=== PATIENT | female | born 1995 | race Two or more races ===

== ENCOUNTER 2017-07-15 17:20 | Emergency (ER) | payer OTHER ==
[2017-07-15 17:25] VITALS: BP 140/76; PULSE 83; TEMP 98.1; BMI 24.9
--- NOTE | 2017-07-15 17:26 | PDOC ---
Rapid Medical Evaluation Chief Complaint: Ear Problem Time Seen by Provider: 07/15/17 17:24 Medical Evaluation: Allergies Allergy/AdvReac Type Severity Reaction Status Date / Time No Known Allergies Allergy Verified 07/15/17 17:22 07/15/17 17:24 Pt c/o: bilateral ear pain, no decrease hearing, no discharge Pt on brief exam: vss Pt ordered for : none Pt to proceed to the ED Discharge Disposition - Diagnosis Acute pain of both ears - Referrals - Patient Instructions - Post Discharge Activity
--- NOTE | 2017-07-15 19:09 | PDOC ---
History of Present Illness - General Chief Complaint: Ear Problem Stated Complaint: EAR PROBLEM/14 WKS Time Seen by Provider: 07/15/17 17:24 History Source: Patient Exam Limitations: No Limitations - History of Present Illness Initial Comments: 07/15/17 19:06 Patient is a 21-year-old female, currently 12 weeks denies any medical history presents with bilateral ear pain since yesterday. She reports receiving flu vaccine 1 week ago, the day after developed cold-like symptoms. Currently denies any fever. No nausea vomiting or diarrhea. Tolerating by mouth. Past Medical History: [Denies]. Allergies: No known allergies Medications: Family History: Non-contributory Social History: Denies smoking, alcohol use, or IVDU Review of Systems GENERAL/CONSTITUTIONAL: [No fever or chills. No weakness. No weight change.] HEAD, EYES, EARS, NOSE AND THROAT: [No change in vision. Bilateral ear pain. No sore throat. ] CARDIOVASCULAR: [No chest pain or shortness of breath.] RESPIRATORY: [No cough, wheezing, or hemoptysis.] GASTROINTESTINAL: [No nausea, vomiting, diarrhea or constipation. No rectal bleeding.] GENITOURINARY: [No dysuria, frequency, or change in urination.] MUSCULOSKELETAL: [No joint or muscle swelling or pain. No neck or back pain.] SKIN AND BREASTS: [No rash or easy bruising.] NEUROLOGIC: [No headache, vertigo, loss of consciousness, or loss of sensation.] PSYCHIATRIC: [No depression or anxiety.] ENDOCRINE: [No increased thirst. No abnormal weight change.] HEMATOLOGIC/LYMPHATIC: [No anemia, easy bleeding, or history of blood clots.] ALLERGIC/IMMUNOLOGIC: [No hives or skin allergy. No latex allergy.] Physical Exam: GENERAL: [The patient is awake, alert, and fully oriented, in no acute distress. ] EYES: [Pupils equal, round and reactive to light, extraocular movements intact, sclera anicteric, conjunctiva clear.] ENT: [Ears normal, nares patent, oropharynx clear without exudates. Moist mucous membranes. No uvula deviation] NECK: [Normal range of motion, supple without lymphadenopathy, JVD, or masses.] LUNGS: [Breath sounds equal, clear to auscultation bilaterally. No wheezes, and no crackles.] HEART: [Regular rate and rhythm, normal S1 and S2 without murmur, rub or gallop. ] ABDOMEN: [Soft, nontender, normoactive bowel sounds. No guarding, no rebound. No masses. No bruising or abrasions] MUSCULOSKELETAL: [Normal range of motion, no edema. No clubbing or cyanosis. No cords, erythema, or tenderness. No CVA Tenderness with fist.] NEUROLOGICAL: [Cranial nerves II through XII grossly intact. Normal speech, normal gait.] PSYCH: [Normal mood, normal affect.] SKIN: [Warm, Dry, normal turgor, no rashes or lesions noted.] Past History - Past Medical History Allergies/Adverse Reactions: Allergies Allergy/AdvReac Type Severity Reaction Status Date / Time No Known Allergies Allergy Verified 07/15/17 17:22 Home Medications: Ambulatory Orders NK [No Known Home Medication] 07/15/17 - Suicide/Smoking/Psychosocial Hx Smoking History: Never smoked *Physical Exam - Vital Signs Last Vital Signs Temp Pulse Resp BP Pulse Ox 98.1 F 83 18 140/76 98 07/15/17 17:23 07/15/17 17:23 07/15/17 17:23 07/15/17 17:23 07/15/17 17:23 Medical Decision Making - Medical Decision Making 07/15/17 19:09 A/P: Patient with bilateral ear pain, no evidence of infection patient does have runny nose, cold-like symptoms otherwise unremarkable. Will send rapid strep. 07/15/17 19:32 Strep is negative, patient denies any pain, to take Tylenol as needed for pain and follow-up with ENT *DC/Admit/Observation/Transfer Diagnosis at time of Disposition: Acute pain of both ears - Discharge Dispostion Disposition: HOME Condition at time of disposition: Stable Admit: No - Referrals Referrals: Dg Padgett MD [Staff Physician] - - Patient Instructions Additional Instructions: Please follow-up in the office of Dr. Salgado pain persists, Tylenol as needed for pain. - Post Discharge Activity Forms/Work/School Notes: Back to Work
== END 2017-07-15 19:36 | disposition home or self-care (01) ==
LOC: JERFT 17:20
DX: O99.89 Other specified diseases and conditions complicating pregnancy, childbirth and the puerperium (principal); H92.03 Otalgia, bilateral; Z3A.12 12 weeks gestation of pregnancy
CPT/HCPCS: 87070; 87430; 99281-25

== ENCOUNTER 2017-09-27 20:44 | Emergency (ER) | payer OTHER ==
[2017-09-27 20:56] VITALS: BP 114/67; PULSE 102; TEMP 98.5; BMI 28.3
--- NOTE | 2017-09-27 20:56 | PDOC ---
Rapid Medical Evaluation Time Seen by Provider: 09/27/17 20:52 Medical Evaluation: Allergies Allergy/AdvReac Type Severity Reaction Status Date / Time No Known Allergies Allergy Verified 07/15/17 17:22 09/27/17 20:52 I have performed a brief in-person evaluation of this patient. The patient presents with a chief complaint of: Fever, bodyaches, nasal congestion, sore throat Pertinent physical exam findings: Lungs CTAB. Erythema to oropharynx. I have ordered the following: influenza The patient will proceed to the ED for further evaluation. Discharge Disposition - Diagnosis Viral illness - Referrals - Patient Instructions - Post Discharge Activity
--- NOTE | 2017-09-27 22:51 | PDOC ---
History of Present Illness - General Chief Complaint: Cold Symptoms Stated Complaint: COLD SYMPTOMS Time Seen by Provider: 09/27/17 20:52 - History of Present Illness Initial Comments: 21-year-old 25 week gravid female presents for evaluation of bodyaches and subjective fever at home. She has done nothing for the fever. 09/27/17 22:46 Past History - Past Medical History Allergies/Adverse Reactions: Allergies Allergy/AdvReac Type Severity Reaction Status Date / Time No Known Allergies Allergy Verified 07/15/17 17:22 Home Medications: Ambulatory Orders NK [No Known Home Medication] 07/15/17 COPD: No - Suicide/Smoking/Psychosocial Hx Smoking History: Never smoked Review of Systems - Review of Systems Comments:: GENERAL/CONSTITUTIONAL: [+ fever and chills. No weakness. No weight change.] HEAD, EYES, EARS, NOSE AND THROAT: [No change in vision. No ear pain or discharge. + sore throat nasal congestion.] CARDIOVASCULAR: [No chest pain or shortness of breath.] RESPIRATORY: [No cough, wheezing, or hemoptysis.] GASTROINTESTINAL: [No nausea, vomiting, diarrhea or constipation. No rectal bleeding.] GENITOURINARY: [No dysuria, frequency, or change in urination.] MUSCULOSKELETAL: [No joint or muscle swelling or pain. No neck or back pain.] SKIN AND BREASTS: [No rash or easy bruising.] NEUROLOGIC: [No headache, vertigo, loss of consciousness, or loss of sensation.] PSYCHIATRIC: [No depression or anxiety.] ENDOCRINE: [No increased thirst. No abnormal weight change.] HEMATOLOGIC/LYMPHATIC: [No anemia, easy bleeding, or history of blood clots.] ALLERGIC/IMMUNOLOGIC: [No hives or skin allergy. No latex allergy.] 09/27/17 22:47 *Physical Exam - Vital Signs Last Vital Signs Temp Pulse Resp BP Pulse Ox 98.5 F 102 H 18 114/67 97 09/27/17 20:54 09/27/17 20:54 09/27/17 20:54 09/27/17 20:54 09/27/17 20:54 - Physical Exam Comments: GENERAL: [The patient is awake, alert, and fully oriented, in no acute distress. ] HEAD: [Normal with no signs of trauma.] EYES: [Pupils equal, round and reactive to light, extraocular movements intact, sclera anicteric, conjunctiva clear.] ENT: [Ears normal, nares patent, oropharynx clear without exudates. Moist mucous membranes.] NECK: [Normal range of motion, supple without lymphadenopathy, JVD, or masses.] LUNGS: [Breath sounds equal, clear to auscultation bilaterally. No wheezes, and no crackles.] HEART: [Regular rate and rhythm, normal S1 and S2 without murmur, rub or gallop. ] ABDOMEN: [Gravid nontender.] EXTREMITIES: [Normal range of motion, no edema. No clubbing or cyanosis. No cords, erythema, or tenderness.] NEUROLOGICAL: [Cranial nerves II through XII grossly intact. Normal speech, normal gait.] PSYCH: [Normal mood, normal affect.] SKIN: [Warm, Dry, normal turgor, no rashes or lesions noted.] 09/27/17 22:47 ED Treatment Course - ADDITIONAL ORDERS Additional order review: 09/27/17 20:57 Influenza Types A,B Antigen ([facility]) - Final Nasopharyngeal Swab - Final Medical Decision Making - Medical Decision Making 21-year-old female 25 weeks with most likely a viral syndrome. I've expressed the importance of treating the fever with Tylenol specially being . She understands and is in agreement with the plan 09/27/17 22:48 *DC/Admit/Observation/Transfer Diagnosis at time of Disposition: Viral illness - Discharge Dispostion Disposition: HOME Condition at time of disposition: Stable Decision to Admit order: No - Referrals Referrals: Timmy Ward MD [Staff Physician] - Adri Dewey MD [Non Staff, Medical] - Florence Stark MD [Non Staff, Medical] - Mahendra Buckner MD [Non Staff, Medical] - - Patient Instructions Printed Discharge Instructions: DI for Viral Syndrome Additional Instructions: It is extremely important few to follow-up with her [facility]. If she did not have one I've referred you 3 different ones and give you the the names and numbers. Also follow-up with her primary care physician. Please stay on top of the of fever and treated with Tylenol only. - Post Discharge Activity
== END 2017-09-27 22:55 | disposition home or self-care (01) ==
LOC: JERFT 20:44
DX: R52 Pain, unspecified (principal); O26.891 Other specified pregnancy related conditions, first trimester; O98.512 Other viral diseases complicating pregnancy, second trimester; B34.9 Viral infection, unspecified; Z3A.25 25 weeks gestation of pregnancy
CPT/HCPCS: 87804; 99281-25